=== PATIENT | male | born 1945 | race Hispanic/Latino ===

== ENCOUNTER 2018-08-25 16:12 | Emergency (ER) | payer OTHER ==
[~2018-08-25 16:12] MED LIST: ATOR20TA65 PO; FAMO20TA8 PO; FURO40TA5 PO; LEFL20TA PO; METO-391 PO; OMEP20TA25 PO; SACU1TAB PO; SPIR25TA6 PO; TOFA5TAB PO
[2018-08-25 16:47] LABS: BASOPHILS % (AUTO) 0.8 % (0.0-5.0); HEMATOCRIT 38.4 % (42-54); LYMPHOCYTES % (AUTO) 11.7 % (21.0-51.0); MEAN CORPUSCULAR HEMOGLOBIN 31.7 pg (27.0-33.0); MEAN CORPUSCULAR HGB CONC 34.3 g/dL (32.0-36.0); MEAN CORPUSCULAR VOLUME 92.3 fL (79-99); MONOCYTES % (AUTO) 8.3 % (3.0-13.0); NEUTROPHILS % (AUTO) 78.2 % (40.0-77.0); PLATELET COUNT (AUTO) 461 K/uL (130-400); RED BLOOD CELL COUNT(AUTO) 4.16 MIL/uL (4.50-6.20); RED CELL DISTRIBUTION WIDTH 16.4 % (11.0-15.5)
[2018-08-25 17:02] LABS: CREATININE 1.4 mg/dL (0.5-1.5); POTASSIUM 3.2 mmol/L (3.5-5.1)
[2018-08-25 17:07] LABS: BILIRUBIN,TOTAL 0.5 mg/dL (0.2-1.0); TOTAL PROTEIN, SERUM 8.3 g/dL (6.0-8.3)
[2018-08-25 17:18] LABS: APPEARANCE,URINE Clear (CLEAR); BILIRUBIN,URINE Negative (NEGATIVE); COLOR,URINE Yellow (YELLOW); GLUCOSE, URINE (UA) Negative (NEGATIVE); KETONES,URINE Negative (NEGATIVE); LEUKOCYTE ESTERASE ,URINE Negative (NEGATIVE); NITRATE,URINE Negative (NEGATIVE); OCCULT BLOOD,URINE Negative (NEGATIVE); PH,URINE 5.5 (5.0-8.0); PROTEIN,URINE Negative (NEGATIVE)
== END 2018-08-25 18:52 | disposition home or self-care (01) ==
LOC: EDH 16:12
DX: T82.198A Other mechanical complication of other cardiac electronic device, initial encounter (principal)
CPT/HCPCS: 36415; 80053; 81003; 84484; 85025; 93005

== ENCOUNTER 2018-12-16 15:33 | Inpatient (IN) | payer OTHER | END 2018-12-18 17:40 | disposition home or self-care (01) | LOC: EDH 15:33 → EDHIP 17:00 → 2DH 23:30 | DX: I13.0 Hypertensive heart and chronic kidney disease with heart failure and stage 1 through stage 4 chronic kidney disease, or unspecified chronic kidney disease (principal); E87.1 Hypo-osmolality and hyponatremia; M06.9 Rheumatoid arthritis, unspecified; K21.9 Gastro-esophageal reflux disease without esophagitis; I50.9 Heart failure, unspecified; I08.0 Rheumatic disorders of both mitral and aortic valves; E78.5 Hyperlipidemia, unspecified; N18.3 Chronic kidney disease, stage 3 (moderate); E11.22 Type 2 diabetes mellitus with diabetic chronic kidney disease ==

== ENCOUNTER 2019-01-18 19:31 | Observation (INO) | payer OTHER ==
[~2019-01-18] VITALS: Ht 172.7 cm; Wt 61.7 kg
[~2019-01-18 19:31] MED LIST changes: +AEC81 PO; -ATOR20TA65 PO; +ATROVASTATIN PO; -FAMO20TA8 PO; +FURO20TA4 PO; -FURO40TA5 PO; -LEFL20TA PO; +LEFL20TA18 PO; -METO-391 PO; +METOPROLOL SUCCINATE PO; +OMEP20CA10 PO; -OMEP20TA25 PO; +ONDA4TAB9 PO; +ZOLP10TA6 PO
[2019-01-18 20:52] LABS: BASOPHILS % (AUTO) 0.6 % (0.0-5.0); EOSINOPHILS % (AUTO) 0.4 % (0.0-8.0); HEMATOCRIT 33.4 % (42-54); LYMPHOCYTES % (AUTO) 7.8 % (21.0-51.0); MEAN CORPUSCULAR HEMOGLOBIN 29.1 pg (27.0-33.0); MEAN CORPUSCULAR HGB CONC 33.1 g/dL (32.0-36.0); MEAN CORPUSCULAR VOLUME 87.9 fL (79-99); MONOCYTES % (AUTO) 6.5 % (3.0-13.0); NEUTROPHILS % (AUTO) 84.7 % (40.0-77.0); NUCLEATED RED BLOOD CELLS 0.1 % (0.0-0.19); PLATELET COUNT (AUTO) 254 K/uL (130-400); RED CELL DISTRIBUTION WIDTH 20.8 % (11.0-15.5)
[2019-01-18 21:08] LABS: INR 1.29 (0.85-1.15); PARTIAL THROMBOPLASTIN TIME 28.7 SEC (26.3-35.5); POTASSIUM 3.7 mmol/L (3.5-5.1); PROTHROMBIN TIME 13.5 SEC (9.6-11.6)
[2019-01-18 21:12] LABS: ALBUMIN 3.3 g/dL (3.5-5.0); BILIRUBIN,DIRECT 0.9 mg/dL (0.0-0.3); BILIRUBIN,TOTAL 1.4 mg/dL (0.2-1.0); TOTAL PROTEIN, SERUM 7.1 g/dL (6.0-8.3)
[2019-01-18] MEDS ORDERED: DIPHENHYDRAMINE HCL 25 MG CAPSULE PO PRN (21:15)
[2019-01-18] MEDS ORDERED: GUAIFENESIN-DM 200/20 MG 10 ML PO PRN (21:15)
[2019-01-18] MEDS ORDERED: ONDANSETRON HCL 4 MG/2 ML VIAL IVP PRN (21:15)
[2019-01-18] MEDS ORDERED: SODIUM CHLORIDE 0.9% 10 ML VIAL IVP SCH (21:15)
[2019-01-18] MEDS ORDERED: CLONIDINE HCL 0.1 MG TABLET PO PRN (21:15)
[2019-01-18 21:30] VITALS: BP 153/79
--- NOTE | 2019-01-18 21:30 | NUR ---
ASSESSMENT PATIENT TRANSFERRED FROM E.R. DIRECT ADMIT. DX: INFERIOR VENA CAVA MASS / CHF. PATIENT DENIES PAIN AND SHORTNESS OF BREATH. O2 @ 2L - NASAL CANNULA. RESPIRATIONS UNLABORED. SINUS TACHYCARDIA HR 100'S. REMINDED PATIENT NPO AFTER MIDNIGHT, POSSIBLE PROCEDURE IN A.M. PATIENT VERBALIZED UNDERSTANDING. SEE DOCUMENTATION FOR FULL ASSESSMENT. CALL LIGHT WITHIN REACH. INSTRUCTED PATIENT TO CALL IF ASSISTANCE IS NEEDED.
[2019-01-18 23:42] VITALS: BP 88/59
[2019-01-19] MEDS ORDERED: PRED10TA23 PO (00:54)
[2019-01-19] MEDS ORDERED: FURO40TA5 PO (00:54)
[2019-01-19] MEDS ORDERED: ATOR20TA65 PO (00:54)
[2019-01-19] MEDS ORDERED: TRAZ-185 PO (00:54)
[2019-01-19] MEDS ORDERED: LEFL20TA18 PO (01:01)
[2019-01-19] MEDS ORDERED: MAGN400T53 PO (01:01)
[2019-01-19] MEDS ORDERED: METO-408 PO (01:01)
[2019-01-19 03:44] VITALS: BP 99/62
[2019-01-19] MEDS ORDERED: ACETAMINOPHEN 325 MG TAB PO PRN (03:45)
[2019-01-19] MEDS ORDERED: ACETAMINOPHEN 325 MG TAB ONE ×2 (03:46)
[2019-01-19 04:00] LABS: HEMATOCRIT 29.7 % (42-54); MEAN CORPUSCULAR HEMOGLOBIN 29.5 pg (27.0-33.0); MEAN CORPUSCULAR HGB CONC 33.9 g/dL (32.0-36.0); PLATELET COUNT (AUTO) 275 K/uL (130-400); RED BLOOD CELL COUNT(AUTO) 3.41 MIL/uL (4.50-6.20); RED CELL DISTRIBUTION WIDTH 20.7 % (11.0-15.5); WHITE BLOOD COUNT (AUTO) 6.3 K/uL (4.8-10.8)
[2019-01-19 04:07] LABS: EOSINOPHILS % (MANUAL) 1 % (1-6); LYMPHOCYTES % (MANUAL) 9 % (22-44); MAN.DIFF COMMENT-IMPRESSION MANUAL DIFFERENTIAL; MONOCYTES % (MANUAL) 7 % (2-9); PLATELET MORPHOLOGY COMMENT ADEQUATE; SEGMENTED NEUTROPHILS % 83 % (40-70)
[2019-01-19 04:12] LABS: CREATININE 1.8 mg/dL (0.5-1.5); POTASSIUM 3.5 mmol/L (3.5-5.1)
[2019-01-19 07:00] VITALS: BP 108/71
[2019-01-19] MEDS ORDERED: TRAZODONE HCL 50 MG TAB PO PRN (07:30)
[2019-01-19] MEDS ORDERED: ONDANSETRON 4 MG TABLET PO PRN (07:30)
[2019-01-19] MEDS ORDERED: TOFACITINIB CITRATE 5 MG PO SCH (09:00)
[2019-01-19] MEDS ORDERED: VALSARTAN PO SCH (09:00)
[2019-01-19] MEDS ORDERED: ASPIRIN 81 MG EC TAB PO SCH (09:00)
[2019-01-19] MEDS ORDERED: METOPROLOL TARTRATE 25 MG TAB PO SCH (09:00)
[2019-01-19] MEDS ORDERED: SPIRONOLACTONE 25 MG TAB PO SCH (09:00)
[2019-01-19] MEDS ORDERED: FUROSEMIDE 40 MG TABLET PO SCH (09:00)
[2019-01-19] MEDS ORDERED: SACUBITRIL PO SCH (09:00)
[2019-01-19] MEDS ORDERED: MAGNESIUM OXIDE 400 MG TABLET PO SCH (09:00)
[2019-01-19] MEDS ORDERED: PANTOPRAZOLE SODIUM 40 MG TABLET.DR PO SCH (09:00)
[2019-01-19] MEDS ORDERED: PREDNISONE 5 MG TABLET PO SCH (09:00)
--- NOTE | 2019-01-19 10:15 | NUR ---
PT STATES HE IS NOT READY TO START WARFARIN AND WILL GO AND SPEAK WITH DR. NAIDU ON 01/26/19.
--- NOTE | 2019-01-19 10:20 | NUR ---
GIVEN DISMISSAL INSTRUCTIONS, VERBALIZED UNDERSTANDING. REMOVED SALINE LOCK FROM LEFT ARM, IV SITE WITHOUT REDNESS NOTED. REMOVED TELE PACK.
[2019-01-19] MEDS ORDERED: WARFARIN SODIUM 2.5 MG TAB PO SCH (16:00)
[2019-01-19] MEDS ORDERED: ATORVASTATIN CALCIUM 20 MG TABLET PO SCH (21:00)
[2019-01-20] MEDS ORDERED: LEFLUNOMIDE 20 MG PO SCH (09:00)
== END 2019-01-19 10:40 | disposition home or self-care (01) ==
LOC: EDH 19:31 → EDHIP 19:32 → OBSVTOIN 19:32 → INTOOBSV 19:32 → 2AH 21:21
PROVIDERS: ADMIT Internal Medicine; ATTEND Internal Medicine
DX: I82.220 Acute embolism and thrombosis of inferior vena cava (principal); I25.10 Atherosclerotic heart disease of native coronary artery without angina pectoris; E11.22 Type 2 diabetes mellitus with diabetic chronic kidney disease; I13.0 Hypertensive heart and chronic kidney disease with heart failure and stage 1 through stage 4 chronic kidney disease, or unspecified chronic kidney disease; I50.9 Heart failure, unspecified; N18.3 Chronic kidney disease, stage 3 (moderate); E78.5 Hyperlipidemia, unspecified; I25.5 Ischemic cardiomyopathy; I34.0 Nonrheumatic mitral (valve) insufficiency; J44.9 Chronic obstructive pulmonary disease, unspecified; K21.9 Gastro-esophageal reflux disease without esophagitis; M06.9 Rheumatoid arthritis, unspecified; N28.1 Cyst of kidney, acquired; Z95.1 Presence of aortocoronary bypass graft; Z95.810 Presence of automatic (implantable) cardiac defibrillator; Z88.8 Allergy status to other drugs, medicaments and biological substances
CPT/HCPCS: 36415 ×2; 80048; 80053; 85025 ×2; 85610; 85730; 93005; 99284; G0378 ×15; J7512; 80076

== ENCOUNTER 2019-02-09 15:00 | Observation (INO) | payer OTHER ==
[~2019-02-09] VITALS: Ht 172.7 cm; Wt 61.7 kg
[~2019-02-09 15:00] MED LIST changes: +ATOR20TA65 PO; -ATROVASTATIN PO; +CYCL10TA7 PO; -FURO20TA4 PO; +FURO40TA5 PO; +HYDR-4068 PO; +MAGN400T53 PO; +METO-408 PO; -METOPROLOL SUCCINATE PO; +OMEP-50 PO; -OMEP20CA10 PO; +PRED10TA23 PO; -SACU1TAB PO; +SACU1TAB7 PO; +TRAZ-185 PO; -ZOLP10TA6 PO
[2019-02-09 15:56] LABS: BASOPHILS % (AUTO) 0.4 % (0.0-5.0); EOSINOPHILS % (AUTO) 0.2 % (0.0-8.0); HEMATOCRIT 33.3 % (42-54); LYMPHOCYTES % (AUTO) 7.1 % (21.0-51.0); MEAN CORPUSCULAR HEMOGLOBIN 29.5 pg (27.0-33.0); MEAN CORPUSCULAR HGB CONC 33.1 g/dL (32.0-36.0); MEAN CORPUSCULAR VOLUME 89.1 fL (79-99); MONOCYTES % (AUTO) 9.3 % (3.0-13.0); NUCLEATED RED BLOOD CELLS 0.1 % (0.0-0.19); PLATELET COUNT (AUTO) 305 K/uL (130-400); RED BLOOD CELL COUNT(AUTO) 3.74 MIL/uL (4.50-6.20); RED CELL DISTRIBUTION WIDTH 21.8 % (11.0-15.5); WHITE BLOOD COUNT (AUTO) 7.6 K/uL (4.8-10.8)
[2019-02-09 16:15] LABS: ALBUMIN 3.2 g/dL (3.5-5.0); CREATININE 1.7 mg/dL (0.5-1.5); POTASSIUM 5.1 mmol/L (3.5-5.1); TOTAL PROTEIN, SERUM 7.6 g/dL (6.0-8.3)
[2019-02-09] MEDS ORDERED: ENOXAPARIN SODIUM 40 MG/0.4 ML SYRINGE SQ ONE (18:04)
[2019-02-09] MEDS ORDERED: ENOXAPARIN SODIUM 30 MG/0.3 ML SQ ONE (18:04)
[2019-02-09] MEDS ORDERED: SODIUM CHLORIDE 0.9% 1000ML 1,000 ML IV SCH (19:15)
[2019-02-09] MEDS ORDERED: HYDROMORPHONE HCL 0.5 MG/0.5 ML ML IVP PRN (19:15)
[2019-02-09] MEDS ORDERED: ACETAMINOPHEN 325 MG TAB PO PRN (19:15)
[2019-02-09] MEDS ORDERED: ATORVASTATIN CALCIUM 20 MG TABLET ONE (22:21)
[2019-02-09] MEDS ORDERED: TRAZODONE HCL 50 MG TAB ONE (22:21)
[2019-02-10 03:40] LABS: BASOPHILS % (AUTO) 0.3 % (0.0-5.0); EOSINOPHILS % (AUTO) 0.4 % (0.0-8.0); HEMATOCRIT 26.9 % (42-54); LYMPHOCYTES % (AUTO) 9.1 % (21.0-51.0); MEAN CORPUSCULAR HEMOGLOBIN 29.1 pg (27.0-33.0); MEAN CORPUSCULAR HGB CONC 33.5 g/dL (32.0-36.0); MONOCYTES % (AUTO) 7.8 % (3.0-13.0); NEUTROPHILS % (AUTO) 82.4 % (40.0-77.0); PLATELET COUNT (AUTO) 250 K/uL (130-400); RED BLOOD CELL COUNT(AUTO) 3.09 MIL/uL (4.50-6.20); RED CELL DISTRIBUTION WIDTH 21.4 % (11.0-15.5)
[2019-02-10 03:42] LABS: CARBON DIOXIDE 23 mmol/L (21-32); CHLORIDE 95 mmol/L (101-111); CREATININE 1.6 mg/dL (0.5-1.5); GLOMERULAR FILTR. RATE CALC 46 mL/min (>60); GLUCOSE,RANDOM 81 mg/dL (70-105); POTASSIUM 4.1 mmol/L (3.5-5.1); SODIUM SERUM 130 mmol/L (136-145); UREA NITROGEN, BLOOD 45 mg/dL (7-18)
[2019-02-10 03:53] LABS: ALANINE AMINOTRANSFERASE 78 U/L (12-78); ALBUMIN 2.5 g/dL (3.5-5.0); ASPARTATE AMINOTRANSFERASE 184 U/L (10-37); BILIRUBIN,TOTAL 3.1 mg/dL (0.2-1.0); CREATINE KINASE, TOTAL 71 U/L (21-232); MYOGLOBIN 197 ng/mL (10-92); TOTAL PROTEIN, SERUM 5.9 g/dL (6.0-8.3); TROPONIN I < 0.04 ng/mL (0.00-0.06)
[2019-02-10] MEDS ORDERED: ENOXAPARIN SODIUM 60 MG/0.6 ML SQ SCH (09:00)
[2019-02-10] MEDS ORDERED: ASPIRIN 81MG TAB.CHEW ONE (09:32)
[2019-02-10] MEDS ORDERED: ENOXAPARIN SODIUM 30 MG/0.3 ML SQ ONE (09:32)
[2019-02-10] MEDS ORDERED: METOPROLOL TARTRATE 25 MG TAB ONE (09:33)
--- NOTE | 2019-02-10 11:19 | NUR ---
LINUS Pernell met with pt and Rosa Maria Mann [phone]. Pt reports he is independent of all ADLS, [facility] for [facility] and it was delivered yesterday, pt not sure of DME company name. Pt has nebulizer and shower chair, no in home care services. Pt sees Dr Nguyen and [place] for care and meds. Pt denies dc needs, plan is home with Addendum: 02/10/19 at 1122 by SANDRO SANCHEZ SS Amended: Links added.
[2019-02-10] MEDS ORDERED: HYDROCODONE/ACETAMINOPHEN 10/325 MG TAB PO PRN (16:15)
[2019-02-10] MEDS ORDERED: TRAZODONE HCL 50 MG TAB PO PRN (16:15)
[2019-02-10] MEDS ORDERED: CYCLOBENZAPRINE HCL 10 MG TABLET PO PRN (16:15)
[2019-02-10] MEDS ORDERED: ONDANSETRON 4 MG TABLET PO PRN (16:15)
[2019-02-10 16:30] VITALS: BP 101/69
[2019-02-10 20:08] VITALS: BP 89/69
[2019-02-10 20:25] VITALS: BP 96/63
[2019-02-10] MEDS: SACUBITRIL PO SCH (20:29)
[2019-02-10] MEDS: VALSARTAN PO SCH (20:29)
[2019-02-10] MEDS: TOFACITINIB CITRATE 5 MG PO SCH (20:31)
[2019-02-10] MEDS ORDERED: ATORVASTATIN CALCIUM 20 MG TABLET PO SCH (21:00)
[2019-02-10] MEDS: METOPROLOL TARTRATE 25 MG TAB PO SCH (22:16)
[2019-02-11 00:49] VITALS: BP 86/62
[2019-02-11 03:00] VITALS: BP 88/65
[2019-02-11 07:00] VITALS: BP 91/64
[2019-02-11] MEDS ORDERED: OMEPRAZOLE 20 MG PO SCH (07:30)
[2019-02-11] MEDS ORDERED: FURO20TA6 PO (07:45)
[2019-02-11] MEDS: TOFACITINIB CITRATE 5 MG PO SCH (07:57)
[2019-02-11 07:58] LABS: BASOPHILS % (AUTO) 0.3 % (0.0-5.0); EOSINOPHILS % (AUTO) 0.2 % (0.0-8.0); HEMATOCRIT 27.8 % (42-54); LYMPHOCYTES % (AUTO) 12.3 % (21.0-51.0); MEAN CORPUSCULAR HEMOGLOBIN 29.8 pg (27.0-33.0); MEAN CORPUSCULAR HGB CONC 33.6 g/dL (32.0-36.0); MEAN CORPUSCULAR VOLUME 88.6 fL (79-99); MONOCYTES % (AUTO) 5.8 % (3.0-13.0); NEUTROPHILS % (AUTO) 81.4 % (40.0-77.0); PLATELET COUNT (AUTO) 230 K/uL (130-400); RED BLOOD CELL COUNT(AUTO) 3.13 MIL/uL (4.50-6.20); RED CELL DISTRIBUTION WIDTH 21.2 % (11.0-15.5); WHITE BLOOD COUNT (AUTO) 6.5 K/uL (4.8-10.8)
[2019-02-11] MEDS: METOPROLOL TARTRATE 25 MG TAB PO SCH (08:00)
[2019-02-11] MEDS: VALSARTAN PO SCH (08:01)
[2019-02-11] MEDS: SACUBITRIL PO SCH (08:01)
[2019-02-11 08:06] LABS: CREATININE 1.8 mg/dL (0.5-1.5); POTASSIUM 4.2 mmol/L (3.5-5.1)
--- NOTE | 2019-02-11 08:45 | NUR ---
DISCHARGE VERBAL & WRITTEN DISCHARGE INSTRUCTIONS REVIEWED & GIVEN TO PT & SPOUSE. QUESTIONS ENCOURAGED & CLARIFIED. PROPER CARE & MGT OF SOV REVIEWED. NEW PRESCRIBED MEDICATIONS REVIEWED. PRESCRIPTION GIVEN TO PT. F/U APPT INFO REVIEWED. TELE BIJAN REMOVED. IV DISCONTINUED. PT & SPOUSE TO GATHER PERSONAL BELONGINGS. WILL NOTIFY STAFF WHEN READY TO BE TAKEN TO PRIVATE VEHICLE.
[2019-02-11] MEDS ORDERED: PREDNISONE 5 MG TABLET PO SCH (09:00)
[2019-02-11] MEDS ORDERED: ASPIRIN 81 MG EC TAB PO SCH (09:00)
[2019-02-11] MEDS ORDERED: MAGNESIUM OXIDE 400 MG TABLET PO SCH (09:00)
--- NOTE | 2019-02-11 10:40 | NUR ---
DISCHARGE PT TAKEN TO PRIVATE VEHICLE VIA WC BY Librado JORGE PCP, ACCOMPANIED BY . NO DISTRESS NOTED.
[2019-02-12] MEDS ORDERED: LEFLUNOMIDE 20 MG PO SCH (09:00)
== END 2019-02-11 12:45 | disposition home or self-care (01) ==
LOC: EDH 15:00 → EDHIP 18:40 → 2DH 02-10 16:38
PROVIDERS: ADMIT Internal Medicine; ATTEND Internal Medicine
DX: R07.89 Other chest pain (principal); I13.0 Hypertensive heart and chronic kidney disease with heart failure and stage 1 through stage 4 chronic kidney disease, or unspecified chronic kidney disease; E11.22 Type 2 diabetes mellitus with diabetic chronic kidney disease; I50.9 Heart failure, unspecified; N18.9 Chronic kidney disease, unspecified; I47.1 Supraventricular tachycardia; I95.9 Hypotension, unspecified; E86.9 Volume depletion, unspecified; E78.5 Hyperlipidemia, unspecified; I25.10 Atherosclerotic heart disease of native coronary artery without angina pectoris; I34.0 Nonrheumatic mitral (valve) insufficiency; I42.9 Cardiomyopathy, unspecified; J44.9 Chronic obstructive pulmonary disease, unspecified; Z95.0 Presence of cardiac pacemaker; Z95.1 Presence of aortocoronary bypass graft
CPT/HCPCS: 36415 ×3; 71045; 76705; 78582; 80048; 80053 ×2; 82550; 82948 ×2; 83874; 83880; 84484 ×2; 85025 ×3; 85378; 93005; 99291; A9540; A9558; G0378 ×42; J1650 ×3; J7512; Q0162